=== PATIENT | female | born 1975 | race Caucasian/White ===

== ENCOUNTER → 2016-09-08 | Outpatient (CLI) | payer OTHER ==
[~2016-09-08] MED LIST: PRINZIDE 12.5 M1 TAB; PROZAC 10MG10 MG; ULTRAM 50MG TAB50 MG PO; VENTOLIN0.09 MG IH; ZOFRAN8 MG PO
== END ==
LOC: MC.RAD 12:08
DX: N64.4 Mastodynia (principal); Z85.3 Personal history of malignant neoplasm of breast

== ENCOUNTER 2024-04-17 11:47 | Day surgery (SDC) | payer MEDICARE ==
[~2024-04-17] VITALS: Ht 149.9 cm; Wt 70.4 kg
[2024-04-17] VITALS (12 sets, daily range): BP systolic 132–169; BP diastolic 77–99; PULSE 50–63; TEMP 97.5
[2024-04-17] MEDS ORDERED: 1/2 NS 1,000 ML IV SCH (12:15)
[2024-04-17 12:51] LABS: HEMATOCRIT 37.1 % (37.0-47.0); HEMOGLOBIN 12.1 g/dl (12.5-16.0); MEAN CELL VOLUME 91 fl (80.0-100.0); MEAN CORPUSCULAR HEMOGLOBIN 30 pg (27-31); MEAN CORPUSCULAR HGB CONC 33 g/dl (33.0-37.0); MEAN PLATELET VOLUME 9.3 fl (7.4-10.4); PLATELET COUNT 331 K/mm3 (130-400); REDCELL DISTRIBUTION WIDTH-CV 16.1 % (11.5-14.5)
[2024-04-17 12:57] LABS: PROTHROMBIN TIME 11.4 SECONDS (9.7-12.8)
[2024-04-17 12:59] LABS: PARTIAL THROMBOPLASTIN TIME 32.6 SECONDS (26.0-37.0)
[2024-04-17 13:06] LABS: CALCIUM 7.9 mg/dL (8.4-10.2); CREATININE, serum 0.87 mg/dL (0.57-1.11); POTASSIUM 3.4 mEq/L (3.5-4.5)
[2024-04-17] MEDS ORDERED: ASPIRIN 81M81 MG/TA2 PO (13:24)
[2024-04-17] MEDS ORDERED: WELLBUTRIN 75MG75 MG PO (13:25)
[2024-04-17] MEDS ORDERED: VESICARE 5MG5 MG PO (13:25)
[2024-04-17] MEDS ORDERED: SYNTHROID0.125 MG/T PO (13:25)
[2024-04-17] MEDS ORDERED: CYMBALTA 60MG60 MG PO (13:26)
[2024-04-17] MEDS ORDERED: NORVASC 5MG5 MG/TAB PO (13:26)
[2024-04-17] MEDS ORDERED: COREG 25MG25 MG/TAB PO (13:27)
[2024-04-17] MEDS ORDERED: BUSPAR5 MG PO (13:28)
[2024-04-17] MEDS ORDERED: ZOFRAN 4MG T4 MG/TAB PO (13:28)
[2024-04-17] MEDS ORDERED: Midazolam 2 MG/2 ML VIAL IV SCH (14:28)
[2024-04-17] MEDS ORDERED: fentaNYL 50 MCG/ML 2 ML VIAL IV SCH (14:29)
[2024-04-17] MEDS ORDERED: Iohexol 350 - 100 ML VIAL INCOR ONE (14:34)
--- NOTE | 2024-04-17 15:00 | NUR ---
Elisha is transferred back to rm 14 in the express unit after a LHC with Dr. Parham. Dressing to rt groin is clean and dry, area is soft, cms intact distal. Pt is hooked up for post procedure vitals. at bs. angioseal pamphlet reviewed with Elisha Vallecillo's . BS report and handoff of care to Janet MATAMOROS
--- NOTE | 2024-04-17 19:00 | NUR ---
Pt ambulated with a steady gait to EU14, accompanied by . Pt was scheduled for a [facility]. EKG done. IV started, labs drawn. Meds and HX reviewed with the pt. Consent for the procedure signed. Post procedure the pt came back to EU14. The right groin site was assessed, dressing was clean, dry, and intact. Pt was offered something to eat and drink, denied at the time but later on in the recovery a meal was ordred and the pt accepted a water. Pt was bedrest for 4 hrs. During the recovery the dressing remained clean, dry, and intact. At the end of the 4 hr bedrest the pt got up and walked to the restroom and back to bed. The dressing remained clean, and free of drainage. Discharge education and information discussed with the pt. No questions at the time. IV dc'd and site wrapped with coban. The pt exited the unit by wheelchair accompanied by this nurse to husbands car.
== END 2024-04-17 18:54 | disposition home or self-care (01) ==
LOC: COL.CAR 11:47
PROVIDERS: Internal Medicine Cardiovascular Disease
DX: I25.10 Atherosclerotic heart disease of native coronary artery without angina pectoris (principal); I12.9 Hypertensive chronic kidney disease with stage 1 through stage 4 chronic kidney disease, or unspecified chronic kidney disease; N18.9 Chronic kidney disease, unspecified
CPT/HCPCS: C1760; C1894; J1644; J2250; J3010; Q9967